=== PATIENT | male | born 1995 | race Two or more races ===

== ENCOUNTER 2024-08-14 14:04 | Inpatient (IN) | payer MEDICAID, SELFPAY ==
[2024-08-14 14:04] VITALS: BMI 37.3
[2024-08-14 14:54] VITALS: BP 141/85; PULSE 104; RESP 18; TEMP 37.4; O2SAT 97
--- NOTE | 2024-08-14 15:04 | XR_ITS ---
Examination: CT abdomen with intravenous contrast CT pelvis with intravenous contrast 2-D coronal reconstructions 2-D sagittal reconstructions Date and time of exam:August 06, 2024 1632 hrs. Comparison June 21, 2008 Indications: Right lower abdominal pain with right groin pain and edema today. CTDI: vol (mGy) 13.6 DLP: (mGycm) 907 Technique: Multiple axial sections of the abdomen and pelvis have been obtained. 64 slice high-resolution scanner used. 3 mm axial sections have been obtained, post intravenous injection 60 cc Isovue-370 2-D sagittal, coronal reconstructions obtained. Low dose protocols were performed. One or more of the following dose reduction techniques were used; automated exposure control, adjustment of the mA and/or KV according to patient size, use of iterative reconstruction technique. Findings: Liver mildly irregular contour no focal liver lesions Hepatomegaly 19 cm, splenomegaly 14 cm Contracted gallbladder No pancreatic or adrenal mass Bilateral renal cysts, no renal or ureteral calculi, no hydronephrosis Normal appendix No diverticulitis Normal seminal vesicles No prostatomegaly Focal infectious process in the anterior right groin, axial image 268 with central 32 x 21 mm abscess with reactive enlarged right common femoral lymph node 3 cm This infectious process appears to extend to the upper margin of the scrotum on axial image 320 The osseous structures are intact Impression: Suspect primary hepatocellular disease Hepatosplenomegaly Focal infectious process in the right groin with central 32 x 21 mm abscess with reactive enlarged right common femoral lymph nodes There is infectious process extends to the upper margin of the right scrotum, consider testicular sonography follow-up
--- NOTE | 2024-08-14 15:04 | PD.EDRME ---
Rapid Medical Screening Exam RME Arrival date/time: 08/14/24 14:04 28-year-old male presents emergency department complaining of right groin swelling and pain has been ongoing for several days. Chief Complaint: Urogenital-Male Time Seen by Provider: 08/14/24 15:01 Vital signs: Vital Signs Temperature 99.4 F 08/14/24 14:54 Pulse Rate 104 H 08/14/24 14:54 Respiratory Rate 18 08/14/24 14:54 Blood Pressure 141/85 H 08/14/24 14:54 Pulse Oximetry (%) 97 08/14/24 14:54 Oxygen Delivery Method Room Air 08/14/24 14:54 Vital signs reviewed by provider: Yes
[2024-08-14 15:27] LABS: Collection Type, Urine Clean Catch; RBC,Urine 0 /hpf (0-3)
[2024-08-14 15:36] LABS: Basophils % (Auto) 0 % (0-2.5); Eosinophils # (Auto) 0.1 Thou/mm3 (0.0-0.5); Eosinophils % (Auto) 1 % (0-10); Hematocrit 41.4 % (41.0-53.0); Hemoglobin 14.1 g/dL (13.5-16.0); Immature Granulocytes % (Auto) 0 % (0-0); Immature Granulocytes Auto 0.05 Thou/mm3 (0.00-0.00); Lymphocytes # (Auto) 2.5 Thou/mm3 (1.0-4.8); Lymphocytes % (Auto) 16 % (10-50); Mean Corpuscular HGB Conc 34.1 g/dl (31.0-37.0); Mean Corpuscular Hemoglobin 29.1 pg (25.0-35.0); Mean Corpuscular Volume 86 fL (80-100); Monocytes # (Auto) 0.9 Thou/mm3 (0.0-0.8); Monocytes % (Auto) 6 % (0-12); Neutrophils # (Auto) 11.8 Thou/mm3 (1.8-7.7); Neutrophils % (Auto) 77 % (37-80); Nucleated Red Blood Cell % 0 /100 WBC (0); Platelet Count 302 Thou/mm3 (140-440); RDW Standard Deviation 36.3 fL (35.1-43.9); Red Blood Count 4.84 Miln/mm3 (4.50-5.90); White Blood Count 15.4 Thou/mm3 (3.8-10.6)
[2024-08-14] MEDS: KETOROLAC INJ 60 MG/2 ML VIAL 30 MG IM (15:39)
[2024-08-14 15:45] LABS: Bacteria,Urine 2+; Bilirubin,Urine Negative (Negative); Blood,Urine Negative (Negative); Budding Yeast,Urine Present; Color,Urine Lt-Yellow (Lt Yel-Yel); Glucose, Urine 4+ (Negative); Hyphae Yeast Present; Ketones,Urine Negative (Negative); Leukocyte Esterase,Urine Positive (Negative); Nitrite,Urine Negative (Negative); PH,Urine 6.5 (5.0-7.0); Protein,Urine 1+ (Neg - Trace); Specific Gravity,Urine 1.037 (1.001-1.035); Squamous Epithelial Cell,Urine 1 /hpf (0-5); WBC,Urine 25 /hpf (0-5)
[2024-08-14 15:46] LABS: Culture Indicated,Urine Yes
[2024-08-14 15:47] LABS: Clarity,Urine Hazy (Clear/Hazy)
[2024-08-14 15:59] LABS: Alanine Aminotransferase 12 U/L (10-49); Albumin, Serum 4.8 gm/dL (3.5-5.0); Albumin/Globulin Ratio 1.3 (1.2-2.2); Alkaline Phosphatase 122 U/L (46-116); Anion Gap 5 (7-16); BUN/Creatinine Ratio 8 Ratio (12-20); Bilirubin,Total 0.6 mg/dL (0.3-1.2); Blood Urea Nitrogen 9 mg/dL (9-23); Calcium 9.7 mg/dL (8.3-10.6); Calcium (Corrected) 9.7 mg/dL (8.5-10.1); Carbon Dioxide 27.6 mMol/L (20.0-31.0); Chloride 96 mMol/L (98-107); Creatinine (Component) 1.1 mg/dL (0.6-1.3); Estimated Creatinine Clearance 137.6 mL/min (>60); Globulin 3.7 gm/dL (2.3-3.5); Lipase 39 U/L (12-53); Osmolality,Calculated 275 (275-295); Potassium 3.8 mMol/L (3.4-5.1); Sodium 129 mMol/L (136-145); Total Protein 8.5 gm/dL (5.7-8.2); eGFR > 60 See Note
[2024-08-14 16:02] LABS: Glucose 421 mg/dL (74-106)
[2024-08-14 16:03] LABS: Aspartate Amino Transferase < 8 U/L (0-34)
[2024-08-14 16:59] LABS: Lactate (Lactic Acid) 1.4 mMol/L (0.4-2.0)
[2024-08-14 17:26] LABS: Procalcitonin 0.19 ng/ml (0.0-0.49)
[2024-08-14 18:33] VITALS: BP 126/75; PULSE 81; RESP 15; TEMP 37.1; O2SAT 97
--- NOTE | 2024-08-14 18:59 | EDNOTE_ITS ---
ED Male Genitalurinary RME/HPI General Chief complaint: Urogenital-Male Stated complaint: RIGHT GROIN PAIN x 2 DAYS Time Seen by Provider: 08/14/24 15:01 Arrival date/time: 08/14/24 14:04 RME / HPI RME / HPI Narrative: 08/14/24 14:04 28-year-old male presents emergency department complaining of right groin swelling and pain has been ongoing for several days. ----- Dr. Andersen?s Main ED Evaluation: 28yo male with pmhx DMII presents to the ED for a chief complaint of right groin pain x 2 days. Patient states he noticed a firm area and pain to his right groin area 2 days ago, reporting it grew yesterday. Patient states the pain has persisted, so he came in for evaluation. He denies any fever, chills or any other associated symptoms. No known allergies. Related Data Previous Rx's ?Medication ?Instructions ?Recorded ibuprofen 800 mg tablet 800 mg PO TID PRN pain #30 tabs 01/06/23 Allergies Allergy/AdvReac Type Severity Reaction Status Date / Time No Known Allergies Allergy Verified 08/14/24 14:06 Review of Systems Review of Systems Systems Reviewed: All systems reviewed, normal except as documented Narrative Review of Systems: Gen: No fever, no chills, no weight loss EYES: No discharge, no visual changes, no pain HEENT: No ear pain, no congestion, no sore throat PULM: No shortness of breath, no cough, no congestion CV: No chest pain, no dyspnea on exertion, no palpitations GI: No nausea, no vomiting, no diarrhea, + pain, no constipation : No frequency, no urgency, no dysuria Musc/skel: No joint pain, no back pain Skin: No rash. Warm and dry. Psyc: No hallucinations, no depression Heme/Lymph: No easy bleeding or bruising tendencies Neuro: No weakness, no headache Past Medical History Past Medical History CARDIAC: Negative Cardiac Disorders or Congestive Heart Failure RESPIRATORY: Negative Chronic Obstructive Pulmonary Disease (COPD) or Asthma GENITOURINARY: Negative Renal Disease ENDOCRINE: Positive Diabetes Mellitus Type 2; Negative Diabetes Mellitus Type 1 HEMATOLOGIC: Negative Sickle Cell Disease Family History FAMILY HISTORY: Positive Family Endocrine Disorders; Negative Family Cardiac Disorders Surgical History SURGICAL: Positive Thyroidectomy (PARTIAL) and Knee Sx (L KNEE SRX, AND THYROID SRX) Social History SMOKING STATUS: Never smoker SUBSTANCE USE: does not use ED Exam Narrative Physical exam: GENERAL APPEARANCE: alert and oriented x 4, well-developed, well-nourished, no acute distress VITALS: All vitals were reviewed and the pulse ox is 97% on room air, which is normal according to my interpretation. HEENT: Normocephalic, atraumatic; pupils equal, round, reactive to light; EOMI; mucous membranes pink, moist; oropharynx clear NECK: Supple LUNGS: CTABL; no wheezes, no rales, no rhonchi HEART: Regular rate, regular rhythm; normal S1, S2; no murmurs ABDOMEN: non distended; normal BS; 7x7 cm hard, tender mass at the right inguinal area with overlying swelling and erythema, hot to touch, no scrotal or perineal involvement; no guarding, no rebound; no organomegaly, no hernia; BACK: no CVA tenderness EXTREMITIES: atraumatic; no edema NEUROLOGIC: awake; alert and oriented x4; cranial nerves II-XII grossly intact; no focal sensory or motor deficits PSYCHIATRIC: appropriate mood and affect SKIN: warm, dry, normal color; no rashes Course Course Course Narrative: 1945: Sepsis alert initiated. Orders made at this time are congruent with ED Adult Sepsis Order List. Re-evaluation is to be completed. 2112: NS IVF infused. 2142: Sepsis reassessment performed consisting of lab review, vitals, physical exam including auscultation of heart, lungs, and visual evaluation of capillary refills, mucosal membranes and extremities. Quality Measures Possible source: skin/soft tissue Blood cultures ordered: yes Antibiotic ordered: Yes Pertinent labs: 08/14/24 16:52 Lactic Acid 1.4 mMol/L (0.4-2.0) Procalcitonin 0.19 ng/ml (0.0-0.49) sepsis Orders Category Date Time Status CT Screening NOW Care 08/14/24 15:04 Active Bunch Maker STAT Care 08/14/24 19:42 Active Continuous Pulse Oximetry STAT Care 08/14/24 19:42 Completed EKG (ED ONLY) *Do not use* NOW Care 08/14/24 19:42 Completed In and Out Catheter X1PRN Care 08/14/24 19:42 Completed NPO STAT Care 08/14/24 19:42 Active Strict Intake and Output Routine Care 08/14/24 19:[address] abdomen pelvis w con Stat Exams 08/14/24 15:04 Completed EKG (ED Only) Stat Exams 08/14/24 19:42 Draft XR chest 1V portable Stat Exams 08/14/24 19:45 Completed B-Type Natriuretic Peptide Stat Lab 08/14/24 19:42 Ordered Blood Culture (Lab) Stat Lab 08/14/24 16:54 Received CBC Stat Lab 08/14/24 15:20 Completed CMP [Comprehensive Metabolic Panel] Stat Lab 08/14/24 15:20 Completed Ketone [Beta Hydroxybutyrate] Stat Lab 08/14/24 20:38 Completed LDH (Lactate Dehydrogenase) Stat Lab 08/14/24 20:38 Completed Lactic Acid [Lactate (Lactic Acid)] Stat Lab 08/14/24 16:52 Completed Lipase Stat Lab 08/14/24 15:20 Completed Magnesium Stat Lab 08/14/24 20:38 Completed Partial Thromboplastin Time Stat Lab 08/14/24 15:20 Received Phosphorous Stat Lab 08/14/24 20:38 Completed Procalcitonin Stat Lab 08/14/24 16:52 Completed Prothrombin Time with INR Stat Lab 08/14/24 15:20 Received Troponin I Stat Lab 08/14/24 20:38 Completed Urinalysis, C/S if Indicated Stat Lab 08/14/24 15:11 Completed Urine Culture Stat Lab 08/14/24 15:11 Received VBG [Venous Blood Gas] Stat Lab 08/14/24 20:38 Completed Ketorolac Inj [Toradol Inj] Med 08/14/24 15:04 Discontinued 30 mg IM X1 ONE Piper/Tazo 3.375 gm [Zosyn] Med 08/14/24 19:42 Discontinued 3.375 gm in 50 ml IV X1 Sodium Chloride 0.9% 1000 ml [Ns] 1,000 ml Med 08/14/24 19:47 Discontinued IV 999 mls/hr Vancomycin Inj 1,000 mg Med 08/14/24 19:47 Discontinued Sodium Chloride 0.9% 250 ml [Ns] 250 ml IV X1 Vital Signs Vital signs: Vital Signs Temperature 99.4 F 08/14/24 14:54 Pulse Rate 104 H 08/14/24 14:54 Respiratory Rate 18 08/14/24 14:54 Blood Pressure 141/85 H 08/14/24 14:54 Pulse Oximetry (%) 97 08/14/24 14:54 Oxygen Delivery Method Room Air 08/14/24 14:54 Urogenital - Male MDM Narrative MDM Narrative:: Scribe Attestation: 08/14/24 - Abbie Gibson am scribing for and in the presence of Dr. Andersen. Patient data External records reviewed:: [facility] previous records (Per chart review, patient has no relevant previous ED visits.) Clinical information provided by:: patient Social determinants that could affect healthcare access:: none Patient has the following chronic illnesses:: DM How is presenting disease/condition affected by chronic disease/condition?: exacerbated by Evaluation data The following diagnostics were reviewed and interpreted by me:: lab results and radiology exam(s) Lab and/or radiology exams considered but not ordered:: none Interpretation Summary: WBC count is elevated at 15.4, Sodium is low at 129, Glucose is elevated at 421, Lactic Acid is normal, Procalcitonin is normal, Lipase is normal, UA is positive for a UTI, according to my interpretation. EKG done at 2000, NSR, rate of 75, normal axis, no ectopy, no acute ischemia, according to my interpretation. ---- [facility] Report Signed Patient: CYNDEE MORALES. Record#: [id number] Birthdate: 1995 Age/Sex: 28 / M Location: [facility] Attending Dr: Ordering Physician: Glenda HOLLINGSWORTH)Kee Date of Service: 08/14/24 Procedure(s): CT abdomen pelvis w con Accession Number(s): [id number] cc: Fabiano Barajas MD; John Ramirez MD; Glenda HOLLINGSWORTH)Kee~ Examination: CT abdomen with intravenous contrast CT pelvis with intravenous contrast 2-D coronal reconstructions 2-D sagittal reconstructions Date and time of exam:August 06, 2024 1632 hrs. Comparison June 21, 2008 Indications: Right lower abdominal pain with right groin pain and edema today. CTDI: vol (mGy) 13.6 DLP: (mGycm) 907 Technique: Multiple axial sections of the abdomen and pelvis have been obtained. 64 slice high-resolution scanner used. 3 mm axial sections have been obtained, post intravenous injection 60 cc Isovue-370 2-D sagittal, coronal reconstructions obtained. Low dose protocols were performed. One or more of the following dose reduction techniques were used; automated exposure control, adjustment of the mA and/or KV according to patient size, use of iterative reconstruction technique. Findings: Liver mildly irregular contour no focal liver lesions Hepatomegaly 19 cm, splenomegaly 14 cm Contracted gallbladder No pancreatic or adrenal mass Bilateral renal cysts, no renal or ureteral calculi, no hydronephrosis Normal appendix No diverticulitis Normal seminal vesicles No prostatomegaly Focal infectious process in the anterior right groin, axial image 268 with central 32 x 21 mm abscess with reactive enlarged right common femoral lymph node 3 cm This infectious process appears to extend to the upper margin of the scrotum on axial image 320 The osseous structures are intact Impression: Suspect primary hepatocellular disease Hepatosplenomegaly Focal infectious process in the right groin with central 32 x 21 mm abscess with reactive enlarged right common femoral lymph nodes There is infectious process extends to the upper margin of the right scrotum, consider testicular sonography follow-up Dictated By: John Ramirez MD Signed By: <Electronically signed by John Ramirez MD in [place]> 08/14/24 1727 Medications / Prescriptions Medications or Prescriptions considered but not ordered:: none Medication administrations:: Medication Administration History Discontinued Medications Piperacillin/Tazobactam/Dextrose (Zosyn) 3.375 gm in 50 mls @ 100 mls/hr IV X1 ONE Stop: 08/14/24 20:11 Last Infusion: 08/14/24 20:49 Dose: Infused Documented By: Admin: 08/14/24 19:59 Dose: 100 mls/hr Documented By: SHARAD Sodium Chloride (Ns) 1,000 mls @ 999 mls/hr IV .Q1H1M ONE Stop: 08/14/24 20:47 Last Infusion: 08/14/24 21:13 Dose: Infused Documented By: Admin: 08/14/24 20:01 Dose: 999 mls/hr Documented By: SHARAD Vancomycin HCl 1,000 mg/ (Sodium Chloride) 250 mls @ 150 mls/hr IV X1 ONE Stop: 08/14/24 21:26 Last Admin: 08/14/24 20:45 Dose: 150 mls/hr Documented By: SHARAD Ketorolac Tromethamine (Ketorolac Inj 60 Mg/2 Ml Vial) 30 mg IM X1 ONE Stop: 08/14/24 15:05 Last Admin: 08/14/24 15:39 Dose: 30 mg Documented By: MINERVA see above Consultations Consultation(s) initiated? (list below): Yes Consultation #1 (Physician, Specialty, Details): Discussed case with [Dr. Gibbs] from [general surgery] regarding [consultation]. Discussed patients ED course, exam findings, labs, and radiology results. States he does not need to be consulted at this time due to the abscess being small, but states to have the admitting team call him if the abscess gets larger. Time: 21:16 Consultation #2 (Physician, Specialty, Details): Discussed case with [Dr. Kitchen] from Hospitalist service regarding admission. Discussed patients ED course, exam findings, labs, and radiology results. The Hospitalist [agrees] to accept the patient for admission. Time: 21:38 Diagnosis Urogenital Male Differential Diagnosis: other (cellulitis, abscess, hernia) Most likely diagnosis given after review of the tests above:: see below Admission Indicated Admission indicated?: indicated Admission Request Was there a request for admission?: Yes Admission Attestation Admission request attestation: Discussed case with [] from Hospitalist service regarding admission. Discussed patients ED course, exam findings, labs, and radiology results. The Hospitalist [agrees,declines] to accept the patient for admission. Disposition Plan Disposition Plan: Admit Critical Care Time Critical Care Time Critical Care Time: Yes Total Critical Care Time (min.): 40 Attestation: The high probability of sudden, clinically significant deterioration in the patient?s condition required the highest level of my preparedness to intervene urgently. The services I provided to this patient were to treat and/or prevent clinically significant deterioration. Services included the following: chart data review, reviewing nursing notes and/or old charts, documentation time, field service consultant collaboration regarding findings and treatment options, medication orders and management, direct patient care, vital sign assessments and ordering, interpreting and reviewing diagnostic studies and lab tests. Aggregate critical care time includes only time during which I was engaged in w ork directly related to the patient?s care, as described above, whether at bedside or elsewhere in the Emergency Department. It did not include time spent performing other reported procedures or the services of residents, students, nurses or physician assistants. Discharge Plan Plan Patient Disposition: Admit Acute Care w/in Hospital Prescriptions/Referrals Prescriptions/Med Rec: No Action ibuprofen 800 mg tablet 800 mg PO TID PRN (Reason: pain) Qty: 30 0RF Referrals: Fabiano Barajas MD [Primary Care Provider] - In 1 week Problem List Clinical Impression: Sepsis, Cellulitis Patient/Caregiver Discharge Instructions Print Language: Andorran Stand Alone Forms: Kandi Award Info., Patient Portal Info Letter
--- NOTE | 2024-08-14 19:42 | EKG_ITS ---
[facility] Test Date: 2024-08-14 Pat Name: CYNDEE MORALES Department: Room: - Gender: Male Employment Services Director: : 1995 Requested By: Jarrell Romero Order Number: [id number] Reading MD: Jarrell Romero Measurements Intervals [place] Rate: 75 P: 40 VT: 161 QRS: 18 QRSD: 103 T: 3 QT: 377 QTc: 422 Interpretive Statements SINUS RHYTHM NONSPECIFIC T-WAVE ABNORMALITY Compared to ECG 08/15/2020 19:07:35 T-wave abnormality now present Sinus tachycardia no longer present /store/S0/[id number].pdf
--- NOTE | 2024-08-14 19:45 | XR_ITS ---
Examination: AP chest single view Technique one AP portable upright chest single view Exam date and time: August 06, 20242004 hrs. Indications: Coughing today Findings: Normal heart size No lobar pneumonia Mild accentuation right basilar bronchovascular markings The osseous structures are intact Impression: Right basilar bronchitis pattern
[2024-08-14 19:58] VITALS: PULSE 78
[2024-08-14] MEDS: PIPER/TAZO 3.375 GM 3.375 GM/50 ML BAG IV (19:59)
[2024-08-14] MEDS: SODIUM CHLORIDE 0.9% 1000 ML 1,000 ML 999 ML IV (20:01)
[2024-08-14 20:02] VITALS: BP 117/70; PULSE 76; RESP 16; TEMP 36.8; O2SAT 98
[2024-08-14] MEDS: Vancomycin Inj 1,000 MG in SODIUM CHLORIDE 0.9% 250 ML 250 ML 150 MG IV (20:45)
[2024-08-14 20:50] LABS: Base Excess, Venous 2 (-3-3); O2 Saturation, Venous 66 % (96-97); PCO2, Venous 50 mmHg (36-56); PO2, Venous 35 mmHg (15-58); pH, Venous 7.37 (7.33-7.66)
[2024-08-14 20:54] LABS: Beta Hydroxybutyrate 0.2 mmol/L (<0.6)
[2024-08-14 21:22] LABS: Phosphorous 3.6 mg/dL (2.4-5.1); Troponin I < 0.020 ng/mL (0.0-0.045)
[2024-08-14 22:00] LABS: LDH (Lactate Dehydrogenase) 135 U/L (120-246)
[2024-08-14 22:28] LABS: INR 1.1 (0.9-1.3); Partial Thromboplastin Time 29.9 Seconds (22.0-36.0); Prothrombin Time 11.7 Seconds (9.0-12.2)
[2024-08-14 22:31] LABS: B-Type Natriuretic Peptide < 20 pg/mL (0-100)
--- NOTE | 2024-08-14 22:55 | PD.RESHP ---
Documentation for date of: 08/14/24 [facility] History of Present Illness Chief complaint: Right groin abscess History of present illness: Mr. Sam is a 28-year-old male with past medical history of diabetes mellitus who presented to [facility] on 08/14 with a chief complaint of right groin abscess. Patient reported that he noticed the abscess about 2 days ago, reports tenderness on palpation, denies any pain, fever and chills. Patient does report history of multiple abscesses in the past, reported he had a abscess in the genital area about 3 to 4 months ago which popped by itself. Patient admits to being noncompliant with his diabetes medications, reports taking only oral medications to manage diabetes, follows up with [facility] outpatient. Otherwise patient has no other complaints, denies any chest pain headache and shortness of breath. ED Course: ED Vitals: On presentation in ED BP 141/85, P104, RR 18, temp 99.4, O2 sat 97 on room air ED Labs: ED labs significant for WBC 15.4, neutrophils 11.8, sodium 129, chloride 96, glucose 421, alk phos 122, total protein 8.5, globulin 3.7 urinalysis shows specific gravity 1.037, protein 1+, glucose 4+, leukocyte esterase positive, WBC 25, bacteria 2+, yeast present. ED Imaging:CT abdomen pelvis in ED significant for Suspect primary hepatocellular disease, Hepatosplenomegaly, Focal infectious process in the right groin with central 32 x 21 mm abscess with reactive enlarged right common femoral lymph nodes. There is infectious process extends to the upper margin of the right scrotum, consider testicular sonography follow-up. Chest x-ray shows Right basilar bronchitis pattern. EKG shows sinus rhythm, QTc 422. ED Treatment:Patient was given Toradol x 1, Zosyn, vancomycin, 1 L NS bolus in ED. General surgery was consulted in ED recommended to monitor abscess size, no surgical intervention needed for now. Patient admitted for SIRS positive, suspicion of sepsis secondary to right groin abscess Review of Systems Review of Systems Narrative Review of Systems: ROS: -CONSTITUTIONAL: Denies weight loss, fever and chills. -HEENT: Denies changes in vision and hearing. -RESPIRATORY: Denies SOB and cough. -CV: Denies palpitations and Chest Pain. -GI: Denies abdominal pain, nausea, vomiting,constipation and diarrhea. Positive for right groin pain. -: Denies dysuria and urinary frequency. -MSK: Denies myalgia and joint pain. -SKIN: Denies rash and pruritus. -NEUROLOGICAL: Denies headache and syncope. -PSYCHIATRIC: Denies recent changes in mood. Denies anxiety and depression. 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 Exam Vital Signs Temp Pulse Resp BP Pulse Ox O2 Del Method 98.3 F 76 16 117/70 98 Room Air 08/14/24 20:02 08/14/24 20:02 08/14/24 20:02 08/14/24 20:02 08/14/24 20:02 08/14/24 20:02 Narrative Exam Physical Exam General: Awake and in no acute distress. Conversational and non-toxic appearing. HEENT: Normocephalic, atraumatic, mucous membranes moist. Heart: Regular rate and rhythm, no murmurs. Lungs: Clear to auscultation with no wheezing or crackles. Abdomen: Soft, nondistended, nontender, positive bowel sounds. ?No guarding or rebound tenderness. Neurologic: Alert and oriented x3, no gross neurological deficit, and patient able to move all 4 extremities. Extremities: No edema. Skin: Positive for right groin swelling, tender on palpation. White colored discharge noted around urethral meatus. Results: Labs 08/14/24 15:20 08/14/24 15:20 Labs: Short CBC 08/14/24 Range/Units 15:20 WBC 15.4 H (3.8-10.6) Thou/mm3 Hgb 14.1 (13.5-16.0) g/dL Hct 41.4 (41.0-53.0) % Plt Count 302 (140-440) Thou/mm3 BMP 08/14/24 15:20 Sodium 129 L Potassium 3.8 Chloride 96 L Carbon Dioxide 27.6 BUN 9 Creatinine 1.1 Glucose 421 H* Calcium 9.7 Cardiac Enzymes 08/14/24 Range/Units 20:38 Troponin I < 0.020 (0.0-0.045) ng/mL Liver Function 08/14/24 Range/Units 15:20 Total Bilirubin 0.6 (0.3-1.2) mg/dL AST < 8 (0-34) U/L ALT 12 (10-49) U/L Alkaline Phosphatase 122 H (46-116) U/L Albumin 4.8 (3.5-5.0) gm/dL Urine 08/14/24 Range/Units 15:11 Urine Color Lt-Yellow (Lt Yel-Yel) Urine Clarity Hazy (Clear/Hazy) Urine pH 6.5 (5.0-7.0) Ur Specific [place] 1.037 H (1.001-1.035) Urine Protein 1+ A (Neg - Trace) Urine Glucose (UA) 4+ A (Negative) ABG Interpretation ABG results: 08/14/24 20:38 VBG pH 7.37 VBG pCO2 50 VBG pO2 35 VBG Base Excess 2 Quality Measures Quality Measures sepsis Current suspected stage: ruled out Possible source: skin/soft tissue Blood cultures ordered: yes Antibiotic ordered: Yes Medications Home Medications and Allergies Allergies Allergy/AdvReac Type Severity Reaction Status Date / Time No Known Allergies Allergy Verified 08/14/24 14:06 Visit Medications Acetaminophen (Acetaminophen 325 Mg Tablet) 650 mg PO Q6H PRN PRN Reason: Pain (1-3) and Fever >100.3 Stop: 09/13/24 22:19 Hydrocodone Bitart/Acetaminophen (Hydrocodone/Apap 10/325 Tab) 1 tab PO Q4H PRN PRN Reason: PAIN SCALE 4-10(Mod-Sev Stop: 08/19/24 22:19 Dextrose (Dextrose 50%-Water Inj 50 Ml Syringe) 25 ml IV Q15MIN PRN PRN Reason: BG 50-70 responsive npo pt Stop: 09/13/24 22:24 Dextrose (Dextrose 50%-Water Inj 50 Ml Syringe) 50 ml IV Q15MIN PRN PRN Reason: BG <50 OR BG <70 & pt unresponsive Stop: 09/13/24 22:24 Glucagon (Glucagon Inj 1 Mg Vial) 1 mg IM Q15MIN PRN PRN Reason: BG <70, and no IV access Heparin Sodium (Porcine) (Heparin Sod Inj 5000 Unit/Ml Vial) 5,000 unit SC Q12H JOSEPHINE Stop: 08/28/24 22:29 Cefepime HCl 2 gm/ Sodium (Chloride) 50 mls @ 100 mls/hr IV Q12HR JOSEPHINE Stop: 08/21/24 22:37 Cefepime HCl 2 gm/ Sodium (Chloride) 50 mls @ 100 mls/hr IV X1 ONE Stop: 08/15/24 02:29 Insulin Glargine (Insulin Glargine (Lantus) 5 Unit/0.05 Ml (Per 5 Units)) 15 unit SC HS [facility] Stop: 09/14/24 20:59 Insulin Human Lispro (Insulin Lispro (Admelog) 1 Unit/0.01 Ml Unit) 0 unit SC ACHS [facility]; Protocol Stop: 09/14/24 07:29 Ondansetron HCl (Ondansetron Inj 2 Mg/Ml Inj 2 Ml) 4 mg IV Q6H PRN; Protocol PRN Reason: NAUSEA OR VOMITING Stop: 09/13/24 22:19 Pharmacy Consult (Vancomycin Pharmacy To Dose 1 Each Each) 1 each IV QDAY [facility] Stop: 09/14/24 08:59 Sennosides (Senna Tablet) 1 tab PO QDAY PRN; Protocol PRN Reason: constipation Stop: 09/13/24 22:19 Discontinued Medications Piperacillin/Tazobactam/Dextrose (Zosyn) 3.375 gm in 50 mls @ 100 mls/hr IV X1 ONE Stop: 08/14/24 20:11 Last Infusion: 08/14/24 20:49 Dose: Infused Sodium Chloride (Ns) 1,000 mls @ 999 mls/hr IV .Q1H1M ONE Stop: 08/14/24 20:47 Last Infusion: 08/14/24 21:13 Dose: Infused Vancomycin HCl 1,000 mg/ (Sodium Chloride) 250 mls @ 150 mls/hr IV X1 ONE Stop: 08/14/24 21:26 Last Infusion: 08/14/24 22:34 Dose: Infused Insulin Glargine (Insulin Glargine (Lantus) 5 Unit/0.05 Ml (Per 5 Units)) 15 unit SC X1 ONE Stop: 08/14/24 22:40 Ketorolac Tromethamine (Ketorolac Inj 60 Mg/2 Ml Vial) 30 mg IM X1 ONE Stop: 08/14/24 15:05 Last Admin: 08/14/24 15:39 Dose: 30 mg Assessment & Plan Plan Summary: Mr. Sam is a 28-year-old male with past medical history of diabetes mellitus who presented to [facility] on 08/14 with a chief complaint of right groin abscess. Patient admitted for SIRS positive, suspicion of sepsis secondary to right groin abscess # Right groin abscess and cellulitis # SIRS 2/4 positive, suspicion of sepsis # Fungal balanitis # Leukocytosis On presentation pulse 104, WBC count 15.4. Patient met SIRS criteria 2/4, RR 18, temp 99.4 Noticed the abscess about 2 days ago, reports tenderness on palpation, denies any pain, fever and chills. Noncompliant with diabetes medication, has multiple abscess in the past. CT abdomen pelvis in ED significant for Suspect primary hepatocellular disease, Hepatosplenomegaly, Focal infectious process in the right groin with central 32 x 21 mm abscess with reactive enlarged right common femoral lymph nodes. There is infectious process extends to the upper margin of the right scrotum, consider testicular sonography follow-up. Was given Toradol x 1, Zosyn, vancomycin, 1 L NS bolus in ED. General surgery was consulted in ED recommended to monitor abscess size, no surgical intervention needed for now. Plan: -Started on cefepime and vancomycin (08/15- -Acetaminophen/[place] as needed for pain -Follow blood culture -Follow urine culture -Consider general surgery consult -Topical clotrimazole twice daily # Type 2 diabetes mellitus Patient reports taking oral medication to manage diabetes, admits to noncompliance, poor follow-up outpatient with PCP. Plan: -Started on Lantus 15 units at bedtime -Sliding scale insulin -Follow hemoglobin A1c in a.m. -Hypoglycemia protocol in place DVT prophylaxis: Heparin GI prophylaxis: Not indicated Diet: Carb consistent Lines: Peripheral IV Code status: Full code Case discussed with Attending Dr. Haines. Eleazar Carroll PGY1 Attending Provider Attestation/Addendum 28-year-old male patient was seen in room 355. The patient presented with right groin pain and swelling. CT scan showed possible focal abscess. General surgery evaluation was requested. IV antibiotic started. Patient has been diagnosed with diabetes mellitus but he is not taking any medications. Blood glucose is over 400 he will need diabetes education.
[2024-08-14] MEDS: INSULIN GLARGINE (Lantus) 5 UNIT/0.05 ML (PER 5 UNITS) 15 UNIT SC (23:15)
[2024-08-14] MEDS: HEPARIN SOD INJ 5000 UNIT/ML VIAL SC (23:15)
[2024-08-15] VITALS (8 sets, daily range): BP systolic 115–146; BP diastolic 72–93; PULSE 74–95; RESP 18–99; TEMP 36.2–37; O2SAT 95–98; BMI 36.2
[2024-08-15] MEDS: INSULIN LISPRO (AdmeLOG) 1 UNIT/0.01 ML UNIT 16 UNIT SC (00:53)
[2024-08-15] MEDS: CEFEPIME INJ 2 GM in SODIUM CHLORIDE 0.9% (P) 50 ML IV ×3 (01:51→20:53)
[2024-08-15 05:54] LABS: Basophils # (Auto) 0.1 Thou/mm3 (0.0-0.2); Basophils % (Auto) 0 % (0-2.5); Eosinophils # (Auto) 0.1 Thou/mm3 (0.0-0.5); Eosinophils % (Auto) 1 % (0-10); Hematocrit 36.4 % (41.0-53.0); Hemoglobin 12.4 g/dL (13.5-16.0); Immature Granulocytes % (Auto) 0 % (0-0); Immature Granulocytes Auto 0.05 Thou/mm3 (0.00-0.00); Lymphocytes # (Auto) 2.1 Thou/mm3 (1.0-4.8); Lymphocytes % (Auto) 15 % (10-50); Mean Corpuscular HGB Conc 34.1 g/dl (31.0-37.0); Mean Corpuscular Hemoglobin 29.2 pg (25.0-35.0); Mean Corpuscular Volume 86 fL (80-100); Monocytes % (Auto) 7 % (0-12); Neutrophils # (Auto) 11.3 Thou/mm3 (1.8-7.7); Neutrophils % (Auto) 77 % (37-80); Nucleated Red Blood Cell % 0 /100 WBC (0); Platelet Count 265 Thou/mm3 (140-440); RDW Standard Deviation 36.7 fL (35.1-43.9); Red Blood Count 4.25 Miln/mm3 (4.50-5.90); White Blood Count 14.6 Thou/mm3 (3.8-10.6)
[2024-08-15 06:28] LABS: Alanine Aminotransferase 14 U/L (10-49); Albumin, Serum 4.2 gm/dL (3.5-5.0); Albumin/Globulin Ratio 1.3 (1.2-2.2); Alkaline Phosphatase 98 U/L (46-116); Anion Gap 10 (7-16); Aspartate Amino Transferase < 10 U/L (0-34); BUN/Creatinine Ratio 12 Ratio (12-20); Bilirubin,Total 0.5 mg/dL (0.3-1.2); Blood Urea Nitrogen 12 mg/dL (9-23); Calcium 9.2 mg/dL (8.3-10.6); Calcium (Corrected) 9.2 mg/dL (8.5-10.1); Carbon Dioxide 25.1 mMol/L (20.0-31.0); Cardiac Risk Estimate 3.7 RATIO (4.0-6.7); Chloride 100 mMol/L (98-107); Cholesterol 126 mg/dL (132-200); Estimated Creatinine Clearance 149.1 mL/min (>60); Globulin 3.3 gm/dL (2.3-3.5); Glucose 256 mg/dL (74-106); HDL Cholesterol 34 mg/dL (40-60); LDL Cholesterol,Calculated 72 mg/dL (0-130); Osmolality,Calculated 278 (275-295); Phosphorous 2.4 mg/dL (2.4-5.1); Potassium 3.4 mMol/L (3.4-5.1); Sodium 135 mMol/L (136-145); Thyroid Stimulating Hormone 1.97 uIU/mL (0.55-4.78); Total Protein 7.5 gm/dL (5.7-8.2); Triglycerides 98 mg/dL (30-150); eGFR > 60 See Note
[2024-08-15 06:32] LABS: Glucose Estimated Average 278 mg/dL (80-131); Hemoglobin A1C 11.3 % Hgb (4.8-6.0)
[2024-08-15] MEDS: VANCOMYCIN/NS 1 GM IVPB 200 ML IV ×3 (08:18→22:58)
[2024-08-15] MEDS: INSULIN LISPRO (AdmeLOG) 1 UNIT/0.01 ML UNIT SC ×4 (08:19→20:52)
--- NOTE | 2024-08-15 10:15 | XR_ITS ---
Examination: Testicular sonography complete Technique: High resolution grayscale sonographic images testes with color flow analysis Doppler spectral analysis assessment arterial inflow venous outflow Exam date and time: August 15, 2024 1102 hours Indications: Groin abscess with testicular pain this week Findings: Right testis 4.3 x 1.9 x 2.7 cm Epididymis 11 mm Arterial flow testicle. No testicular mass Left testis 4.0 x 1.8 x 2.7 cm Epididymis 11 mm Arterial flow testicle No testicular mass Impression: No testicular torsion or testicular mass Arterial flow to both testes increased consider bilateral orchitis
[2024-08-15] MEDS: ACETAMINOPHEN 325 MG TABLET 650 MG PO (10:37)
[2024-08-15] MEDS: HEPARIN SOD INJ 5000 UNIT/ML VIAL SC ×2 (10:39→22:58)
--- NOTE | 2024-08-15 10:54 | PC.NURSE ---
called pharmacy for lotrimin cream
--- NOTE | 2024-08-15 11:42 | PD.RESPRO ---
Documentation for date of: 08/15/24 Subjective Subjective Interval history: No acute overnight events. Right groin pain control. Denies fever, chills, headaches, chest pain, sob, cough, GI or urinary symptoms. Exam Vital Signs Temp Pulse Resp BP Pulse Ox O2 Del Method 97.2 F 90 18 115/73 96 Room Air 08/15/24 07:30 08/15/24 11:21 08/15/24 11:21 08/15/24 07:30 08/15/24 07:30 08/15/24 07:30 Narrative Exam GENERAL: Normal appearing adult male, NAD HEENT: NCAT.?YASMINE. Oral mucosa is moist. Patent Nares NECK: Supple, nontender, no thyromegaly, no meningismus, no JVD, no step offs CARDIOVASCULAR: RRR, no m/g/r LUNGS: CTAB, no w/r/r. Symmetrical chest rise. No intercostal subcostal retraction. ABDOMEN: Soft, flat, nontender. No guarding/rebound tenderness/masses. +BS EXTREMITIES: Nontender.? No edema/cyanosis.?Moves all 4 extremities well, with full ROM and good CSM. SKIN: Large right groin swelling with tenderness to palpation. No signs of active discharge or bleed. MSK: No lumbar or midline, no CVA, no paraspinal muscle spasm or tenderness. NEURO: No focal neurologic deficits. PSYCHIATRIC: Normal mood and affect, cooperative, no SI or HI or hallucinations. Objective Labs 08/15/24 04:25 08/15/24 04:25 Labs: Laboratory Results - last 24 hr 08/14/24 08/14/24 08/14/24 15:11 15:20 16:52 WBC 15.4 H RBC 4.84 Hgb 14.1 Hct 41.4 MCV 86 MCH 29.1 MCHC 34.1 RDW Std Deviation 36.3 Plt Count 302 Neut % (Auto) 77 Lymph % (Auto) 16 [place] % (Auto) 6 Eos % (Auto) 1 Baso % (Auto) 0 Neut # (Auto) 11.8 H Lymph # (Auto) 2.5 [place] # (Auto) 0.9 H Eos # (Auto) 0.1 Baso # (Auto) 0.0 Immature Gran # (Auto) 0.05 H Absolute Nucleated RBC 0.00 Immature Gran % 0 Nucleated RBC % 0 PT 11.7 INR 1.1 APTT 29.9 VBG pH VBG pCO2 VBG pO2 VBG O2 Sat (Amish) VBG Base Excess Sodium 129 L Potassium 3.8 Chloride 96 L Carbon Dioxide 27.6 Anion Gap 5 L BUN 9 Creatinine 1.1 Estim Creat Clear Calc 137.6 eGFR > 60 BUN/Creatinine Ratio 8 L Glucose 421 H* Estimated Ave Glu mg/dL Hemoglobin A1c Calculated Osmolality 275 Lactic Acid 1.4 Calcium 9.7 Corrected Calcium 9.7 Phosphorus Magnesium Total Bilirubin 0.6 AST < 8 ALT 12 Alkaline Phosphatase 122 H Lactate Dehydrogenase Troponin I B-Natriuretic Peptide < 20 Total Protein 8.5 H Albumin 4.8 Globulin 3.7 H Albumin/Globulin Ratio 1.3 Triglycerides Cholesterol LDL Cholesterol, Calc HDL Cholesterol Cholesterol/HDL Ratio Lipase 39 Beta-Hydroxybutyrate/Acetoacetate Procalcitonin 0.19 TSH Ur Collection Type Clean Catch Urine Color Lt-Yellow Urine Clarity Hazy Urine pH 6.5 Ur Specific [place] 1.037 H Urine Protein 1+ A Urine Glucose (UA) 4+ A Urine Ketones Negative Urine Blood Negative Urine Nitrite Negative Urine Bilirubin Negative Urine Urobilinogen (Auto) 4.0 Ur Leukocyte Esterase Positive Urine RBC 0 Urine WBC 25 H Ur Squamous Epith Cells 1 Urine Bacteria 2+ A Ur Yeast w Hyphae Present A Urine Yeast (Budding) Present A Ur Culture Indicated? Yes 08/14/24 08/15/24 20:38 04:25 WBC 14.6 H RBC 4.25 L Hgb 12.4 L Hct 36.4 L MCV 86 MCH 29.2 MCHC 34.1 RDW Std Deviation 36.7 Plt Count 265 D Neut % (Auto) 77 Lymph % (Auto) 15 [place] % (Auto) 7 Eos % (Auto) 1 Baso % (Auto) 0 Neut # (Auto) 11.3 H Lymph # (Auto) 2.1 [place] # (Auto) 1.0 H Eos # (Auto) 0.1 Baso # (Auto) 0.1 Immature Gran # (Auto) 0.05 H Absolute Nucleated RBC 0.00 Immature Gran % 0 Nucleated RBC % 0 PT INR APTT VBG pH 7.37 VBG pCO2 50 VBG pO2 35 VBG O2 Sat ([place]ish) 66 L VBG Base Excess 2 Sodium 135 L Potassium 3.4 Chloride 100 Carbon Dioxide 25.1 Anion Gap 10 BUN 12 Creatinine 1.0 Estim Creat Clear Calc 149.1 eGFR > 60 BUN/Creatinine Ratio [address]ucose [address] Glu mg/dL 278 H Hemoglobin A1c 11.3 H Calculated Osmolality 278 Lactic Acid Calcium 9.2 Corrected Calcium 9.2 Phosphorus 3.6 2.4 Magnesium 2.0 2.0 Total Bilirubin 0.5 AST < 10 ALT 14 Alkaline Phosphatase 98 D Lactate Dehydrogenase 135 Troponin I < 0.020 B-Natriuretic Peptide Total Protein 7.5 Albumin 4.2 D Globulin 3.3 Albumin/Globulin Ratio 1.3 Triglycerides 98 Cholesterol 126 L LDL Cholesterol, Calc 72 HDL Cholesterol 34 L Cholesterol/HDL Ratio 3.7 L Lipase Beta-Hydroxybutyrate/Acetoacetate 0.2 Procalcitonin TSH 1.97 Ur Collection Type Urine Color Urine Clarity Urine pH Ur Specific [place] Urine Protein Urine Glucose (UA) Urine Ketones Urine Blood Urine Nitrite Urine Bilirubin Urine Urobilinogen (Auto) Ur Leukocyte Esterase Urine RBC Urine WBC Ur Squamous Epith Cells Urine Bacteria Ur Yeast w Hyphae Urine Yeast (Budding) Ur Culture Indicated? ABG Interpretation ABG results: 08/14/24 20:38 VBG pH 7.37 VBG pCO2 50 VBG pO2 35 VBG Base Excess 2 Quality Measures Quality Measures sepsis Current suspected stage: ruled out Possible source: skin/soft tissue Blood cultures ordered: yes Antibiotic ordered: Yes Assessment & Plan Assessment Current Active Medications: Generic Name Dose Route Start Last Admin Trade Name Freq PRN Reason Stop Dose Admin Acetaminophen 650 mg 08/14/24 22:20 Acetaminophen 325 Mg Tablet PO 09/13/24 22:19 Q6H PRN Pain (1-3) and Fever >100.3 Hydrocodone Bitart/Acetaminophen 1 tab 08/14/24 22:20 Hydrocodone/Apap 10/325 Tab PO 08/19/24 22:19 Q4H PRN PAIN SCALE 4-10(Mod-Sev Clotrimazole 0 gm 08/15/24 09:00 Clotrimazole Cr 1% 30 Gm Tube TOP 09/14/24 08:59 BID JOSEPHINE Dextrose 25 ml 08/14/24 22:25 Dextrose 50%-Water Inj 50 Ml Syringe IV 09/13/24 22:24 Q15MIN PRN BG 50-70 responsive npo pt Dextrose 50 ml 08/14/24 22:25 Dextrose 50%-Water Inj 50 Ml Syringe IV 09/13/24 22:24 Q15MIN PRN BG <50 OR BG <70 & pt unresponsive Glucagon 1 mg 08/14/24 22:25 Glucagon Inj 1 Mg Vial IM Q15MIN PRN BG <70, and no IV access Heparin Sodium (Porcine) 5,000 unit 08/14/24 22:30 08/15/24 10:39 Heparin Sod Inj 5000 Unit/Ml Vial SC 08/28/24 22:29 5,000 unit Q12H JOSEPHINE Administration Cefepime HCl 2 gm/ Sodium 50 mls @ 100 mls/hr 08/15/24 09:00 08/15/24 10:35 Chloride IV 08/22/24 08:59 100 mls/hr Q12HR JOSEPHINE Administration Vancomycin/Sodium Chloride 200 mls @ 120 mls/hr 08/15/24 07:15 08/15/24 08:18 Vancomycin/Ns 1 Gm Ivpb IV 08/22/24 07:14 120 mls/hr Q8HR JOSEPHINE Administration Protocol Insulin Glargine 15 unit 08/15/24 21:00 Insulin Glargine (Lantus) 5 Unit/0.05 Ml (Per 5 Units) SC 09/14/24 20:59 HS JOSEPHINE Insulin Human Lispro 0 unit 08/15/24 07:30 08/15/24 08:19 Insulin Lispro (Admelog) 1 Unit/0.01 Ml Unit SC 09/14/24 07:29 4 unit ACHS JOSEPHINE Administration Protocol Ondansetron HCl 4 mg 08/14/24 22:20 Ondansetron Inj 2 Mg/Ml Inj 2 Ml IV 09/13/24 22:19 Q6H PRN NAUSEA OR VOMITING Protocol Pharmacy Consult 1 each 08/15/24 09:00 Vancomycin Pharmacy To Dose 1 Each Each IV 09/14/24 08:59 QDAY PRN PROTOCOL Sennosides 1 tab 08/14/24 22:20 Senna Tablet PO 09/13/24 22:19 QDAY PRN constipation Protocol Plan In summary: 28-year-old male with PMH of NIDDM, admitted for sepsis 2/2 right groin abscess. No surgical interventions at this time per general surgery. Continued on ANTIBIOTICS. Overall improving. Sepsis (resolved) 2/2 Right groin abscess and cellulitis Fungal balanitis Presented with tachycardia, leukocytosis, with suspected source of right groin abscess which has been ongoing for 2 days prior to admission. CT showed 32 x 21 right groin abscess with reactive common femoral lymph node, and infectious process extending to upper margin of right scrotum. General surgery recommended observation for now. ? Continue CEFEPIME (08/15 to [present]) ? Continue VANCOMYCIN (08/15 to [present]) ? Topical CLOTRIMAZOLE BID ? Pain control ? Wound care ? Pending blood culture ? Pending scrotal ultrasound T2DM, poorly controlled Previously prescribed oral antiglycemic agents, noncompliant 2/2 diarrhea and abdominal discomfort caused by meds. A1c 11.3 this visit. GLUCOSE currently 256 ? Continue glargine 15 units daily ? Continue INSULIN sliding scale ? Accu-Cheks ? Recommended follow-up with PCP for glycemic control Health maintenance Diet: CHO consistent GI prophylaxis: Not indicated DVT prophylaxis: HEPARIN Antibiotics: CEFEPIME, VANCOMYCIN CODE STATUS: Full code Disposition: Pending abscess improvement Patient case was discussed with attending, Dr. Azael Trejo DO and senior resident Dr. Post. Minesh Dunbar DO PGYI Attending Provider Attestation/Addendum I have discussed and was present for the essential components of the history, physical examination, diagnosis, and treatment plan with the resident. I agree with the patient's care as documented by the resident and amended herein by me. Sreekanth Trejo DO. Patient seen and evaluated this AM. Vital signs stable, patient afebrile overnight, WBC 14 today, A1c 11, UA positive however patient asymptomatic for any urinary tract infection. Scrotal ultrasound today demonstrates an increased blood flow to the testes possibly suggesting orchitis. Surgery consulted on admission, no surgical intervention at this time. Will continue cefepime and vancomycin, follow-up with cultures, continue clotrimazole for possible fungal balanitis and adjust diabetic medications for optimal blood glucose control. Although this document has been carefully reviewed, there may still be some phonetic and other typographical errors. These errors are purely grammatical due to imperfections in the software program and should not be construed in any way to compromise the substance of the patient's medical care during this visit.
[2024-08-15] MEDS: CLOTRIMAZOLE CR 1% 30 GM TUBE TOP ×2 (14:23→20:51)
--- NOTE | 2024-08-15 14:41 | PC.SS ---
Tomi Sam is 28 year old male admitted to [facility] for right groin abscess. SS conducted bedside contact with the patient to complete initial assessment and to discuss discharge planning. SW used all precautionary measures to complete initial. Role and reason for the contact was explained to Rea. Pt is alert and oriented times 4. Patient confirmed demographic information and lives with mother. Patient identifies Lilian Sam, mother, as his surrogate decision maker. Pt states prior to hospitalization he is able to complete all ADL?s independently does not need DME nor O2. Pt confirmed no history of mental health or substance abuse. Pts PCP is Fabiano Barajas. Pt has not seen doctor for quite some time. Pt confirmed he is not consistent with diabetes medication. Pharmacy of choice is [facility]. Pt works for [employer] but is on work comp leave due to knee awaiting surgery. Discharge options discussed and the pt will go home. Advance life directive discussed pt was not receptive and knows to reach out to PCP for paperwork. Family will provide transportation upon DC. No further intervention required at this time, social director would be available to address any further concerns. DC Plan: Home Contact: mother Hughes, Address: Confirmed on face sheet PCP: Fabiano Barajas
[2024-08-15] MEDS: INSULIN GLARGINE (Lantus) 5 UNIT/0.05 ML (PER 5 UNITS) 15 UNIT SC (20:51)
--- NOTE | 2024-08-15 22:23 | PC.NURSE ---
Vancomycin trough still pending.
[2024-08-16] VITALS (7 sets, daily range): BP systolic 107–121; BP diastolic 65–73; PULSE 77–103; RESP 16–96; TEMP 36.6–37.4; O2SAT 93–97; BMI 36.1
[2024-08-16] MEDS: VANCOMYCIN/NS 1 GM IVPB 200 ML IV (05:36)
[2024-08-16 06:13] LABS: Basophils # (Auto) 0.1 Thou/mm3 (0.0-0.2); Basophils % (Auto) 0 % (0-2.5); Eosinophils # (Auto) 0.2 Thou/mm3 (0.0-0.5); Eosinophils % (Auto) 1 % (0-10); Hematocrit 36.7 % (41.0-53.0); Hemoglobin 12.4 g/dL (13.5-16.0); Immature Granulocytes % (Auto) 1 % (0-0); Immature Granulocytes Auto 0.09 Thou/mm3 (0.00-0.00); Lymphocytes # (Auto) 2.7 Thou/mm3 (1.0-4.8); Lymphocytes % (Auto) 19 % (10-50); Mean Corpuscular HGB Conc 33.8 g/dl (31.0-37.0); Mean Corpuscular Hemoglobin 29.7 pg (25.0-35.0); Mean Corpuscular Volume 88 fL (80-100); Monocytes # (Auto) 0.8 Thou/mm3 (0.0-0.8); Monocytes % (Auto) 6 % (0-12); Neutrophils # (Auto) 10.4 Thou/mm3 (1.8-7.7); Neutrophils % (Auto) 73 % (37-80); Nucleated Red Blood Cell % 0 /100 WBC (0); Platelet Count 283 Thou/mm3 (140-440); RDW Standard Deviation 37.4 fL (35.1-43.9); Red Blood Count 4.18 Miln/mm3 (4.50-5.90); White Blood Count 14.2 Thou/mm3 (3.8-10.6)
[2024-08-16 06:23] LABS: Alanine Aminotransferase 12 U/L (10-49); Albumin, Serum 4.2 gm/dL (3.5-5.0); Albumin/Globulin Ratio 1.3 (1.2-2.2); Alkaline Phosphatase 96 U/L (46-116); Anion Gap 10 (7-16); Aspartate Amino Transferase < 10 U/L (0-34); BUN/Creatinine Ratio 11 Ratio (12-20); Bilirubin,Total 0.5 mg/dL (0.3-1.2); Blood Urea Nitrogen 10 mg/dL (9-23); Calcium 9.9 mg/dL (8.3-10.6); Calcium (Corrected) 9.9 mg/dL (8.5-10.1); Carbon Dioxide 27.5 mMol/L (20.0-31.0); Chloride 101 mMol/L (98-107); Creatinine (Component) 0.9 mg/dL (0.6-1.3); Estimated Creatinine Clearance 165.7 mL/min (>60); Globulin 3.3 gm/dL (2.3-3.5); Glucose 177 mg/dL (74-106); Osmolality,Calculated 278 (275-295); Potassium 3.4 mMol/L (3.4-5.1); Sodium 138 mMol/L (136-145); Total Protein 7.5 gm/dL (5.7-8.2); eGFR > 60 See Note
[2024-08-16] MEDS: INSULIN LISPRO (AdmeLOG) 1 UNIT/0.01 ML UNIT SC ×2 (08:06→11:30)
[2024-08-16] MEDS: CEFEPIME INJ 2 GM in SODIUM CHLORIDE 0.9% (P) 50 ML IV (08:06)
[2024-08-16] MEDS: CLOTRIMAZOLE CR 1% 30 GM TUBE TOP (08:07)
[2024-08-16] MEDS: metroNIDAZOLE 250 MG TABLET 500 MG PO (11:17)
[2024-08-16] MEDS: HEPARIN SOD INJ 5000 UNIT/ML VIAL SC (11:17)
--- NOTE | 2024-08-16 11:53 | ESDS_ITS ---
Planned Discharge Date 08/16/24 DS: Providers Provider Date of admission: 08/14/24 22:19 Primary care physician: Fabiano Barajas MD Admitting Provider: Roberto Haines MD Attending Provider on Admission: Roberto Haines MD Consults: 08/14/24 22:26 Referral Registered Dietitian Routine Comment: 08/15/24 04:44 Referral Registered Dietitian Routine Comment: Attending Provider on DC: Dr. Azael Trejo DO Discharging Provider: Dr. Azael Trejo DO DS: Diagnosis Problem List Completed Was Problem List Reviewed/Reconciled?: Yes Hospital Course Hospital Course Hospital course: This is a 28-year-old male with PMHx of diabetes, poorly controlled with an A1c of 11.5 who presented with sepsis in setting of right groin abscess and balanitis. CT showed infectious process extending to the upper margin of the right scrotum as well as focal right groin abscess measuring 32 x 21 mm and reactive, enlarged right common femoral lymph nodes. General surgery recommended ANTIBIOTICS treatment, no surgical intervention. Patient continued on IV ANTIBIOTICS and he responded well with improved abscess size. Patient started on INSULIN regimen given his uncontrolled diabetes. He was also followed up by nutrition for diabetes management. Patient will continue on home ANTIBIOTICS as prescribed. He will follow-up with PCP in regards to abscess and glycemic control. PATIENT INSTRUCTIONS: Follow-up with PCP within 1 week of discharge, discussed glycemic control, other antiglycemic agents. Please discuss lifestyle modification with your PCP Continue taking INSULIN as prescribed below, continue using GLUCOSE monitor Return to Emergency Room if symptoms persist, worsen, or new symptoms develop. Continue taking ANTIBIOTICS as described below: ? OMEPRAZOLE topical cream twice daily ? METRONIDAZOLE 500 mg every 8 hours ? CIPROFLOXACIN 500 mg twice daily ? DOXYCYCLINE 100 mg twice daily ? INSULIN GLARGINE 15 units daily at night DISCONTINUE taking the following medications: ? IBUPROFEN 800 mg ? JANUMET 50 mg ADMISSION DIAGNOSES: Sepsis (resolved) 2/2 Right groin abscess and cellulitis Fungal balanitis T2DM, poorly controlled Patient case was discussed with attending, Dr. Azael Trejo DO and senior residents Dr. Post and Dr. Bhaagt. Minesh Dunbar DO PGYI Time Spent with Patient Time attestation: Total time spent providing and/or coordinating discharge services: Greater than 35 minutes. Exam Vital Signs Temp Pulse Resp BP Pulse Ox O2 Del Method 99.3 F 77 16 112/66 94 L Room Air 08/16/24 08:00 08/16/24 08:00 08/16/24 08:00 08/16/24 08:00 08/16/24 08:00 08/16/24 08:00 Discharge Plan Plan Patient Disposition: HOME (Self Care) Patient condition on transfer: Stable Prescriptions/Referrals Prescriptions/Med Rec: New clotrimazole [Antifungal (clotrimazole)] 1 % Cream 1 applic top BID 7 Days Qty: 30 0RF metronidazole 500 mg tablet 500 mg PO Q8H 3 Days Qty: 9 0RF ciprofloxacin HCl [Cipro] 500 mg tablet 500 mg PO Q12H 3 Days Qty: 6 0RF (DME) FreeStyle Ever 3 Sensor Device See Rx Instructions .Route Qty: 2 0RF Rx Instructions: As directed to monitor blood glucose insulin glargine [Lantus Solostar U-100 Insulin] 100 unit/mL (3 mL) insulin pen 15 unit subcut HS 30 Days Qty: 4.5 1RF (DME) pen needle, diabetic [Pen Needle] 29 gauge x 1/2 needle See Rx Instructions .Route Qty: 100 1RF Rx Instructions: As directed (DME) blood-glucose meter Kit See Rx Instructions .Route Qty: 1 0RF Rx Instructions: As directed (DME) lancets 30 gauge misc See Rx Instructions .Route Qty: 200 0RF Rx Instructions: As directed (DME) Blood Glucose Test Strip See Rx Instructions .Route Qty: 50 2RF Rx Instructions: As directed doxycycline hyclate 100 mg tablet 100 mg PO BID 3 Days Qty: 6 0RF Discontinued ibuprofen 800 mg tablet 800 mg PO TID PRN (Reason: pain) Qty: 30 0RF Janumet 50 mg PO BID Rx Instructions: Referrals: Fabiano Barajas MD [Primary Care Provider] - Patient/Caregiver Discharge Instructions Other Discharge Activity Instructions:: Follow-up with PCP within 1 week of disc harge, discussed glycemic control, other antiglycemic agents. Please discuss lifestyle modification with your PCP Continue taking INSULIN as prescribed below, continue using GLUCOSE monitor Return to Emergency Room if symptoms persist, worsen, or new symptoms develop. Continue taking ANTIBIOTICS as described below: ? OMEPRAZOLE topical cream twice daily ? METRONIDAZOLE 500 mg every 8 hours ? CIPROFLOXACIN 500 mg twice daily ? DOXYCYCLINE 100 mg twice daily ? INSULIN GLARGINE 15 units daily at night DISCONTINUE taking the following medications: ? IBUPROFEN 800 mg ? JANUMET 50 mg Education Materials: Discharge Instructions Using ... Print Language: Estonian Stand Alone Forms: [employer] Award Info., Patient Portal Info Letter Discharge Order Discharge Orders: Discharge (Routine); Ordered 08/16/24 Ordered By: Mo Post Quality Discharge Quality Measures VTE prophylaxis MD Attestestation MD Attestation I have discussed and was present for the essential components of the discharge history, physical examination, diagnosis, and discharge treatment plan with the resident. I agree with the patient's discharge care as documented by the resident and amended herein by me. Sreekanth Trejo DO. The patient understood all discharge instructions, all questions were answered satisfactorily. The patient was instructed to return to the Emergency Department is symptoms worsened or persisted. Although this document has been carefully reviewed, there may still be some phonetic and other typographical errors. These errors are purely grammatical due to imperfections in the software program and should not be construed in any way to compromise the substance of the patient's medical care during this visit.
--- NOTE | 2024-08-16 12:12 | PC.SS ---
Follow up note: Patient to d/c home today. No needs.
--- NOTE | 2024-08-16 17:00 | PC.NURSE ---
received phone call from [facility] pharmacy where pt prescriptions were sent, per pharmacist at [facility], the lancets and test strips that were prescribed cannot be charged to pt insurance due to the frequency not being listed on prescription. Attempted to notify resident MD's on duty and did not receive response. multiple attempts made to call residents.
== END 2024-08-16 16:30 | disposition home or self-care (01) | DRG 383 ==
LOC: SERX 21:54 → SERHOLD 22:47 → S3NX 08-15 00:20
PROVIDERS: Admitting Provider Internal Medicine; Emergency Provider Emergency Medicine; PCP Family Medicine; Visit Provider Internal Medicine
DX: L02.214 Cutaneous abscess of groin (principal); L03.314 Cellulitis of groin; N48.1 Balanitis; Z91.148 Patient's other noncompliance with medication regimen for other reason; E11.65 Type 2 diabetes mellitus with hyperglycemia
CPT/HCPCS: 36415; 71045; 74177; 76870; 80053; 80061; 80202; 81001; 82010; 82803; 83036; 83605; 83615; 83690; 83735; 83880; 84100; 84145; 84443; 84484; 85025; 85610; 85730; 87040; 87081; 87086; 93005; 96365; 96366; 96367; 96372; 99291; A4649; J0692; J1643; J1815; J1885; J2543; J3370; J3371; J7030; J7050; Q9967; A9270; J1644

== ENCOUNTER 2024-10-17 14:06 | Emergency (ER) | payer MEDICAID, SELFPAY ==
--- NOTE | 2024-10-17 14:50 | XR_ITS ---
Examination: Ultrasound soft tissue right lower abdomen right groin Technique: Grayscale sonographic images soft tissue right lower abdomen right groin Exam date and time: October 17, 2024 1707 hrs. Indications: Palpable lump with enlargement in the right groin beginning 3 days ago, history on CT abdomen pelvis August 06, 2024 infectious process in the right groin consistent with abscess Findings: Sonographic images demonstrate extensive edema with cystic structure indistinct margins in the right groin 3.3 x 2.6 x 3.2 cm most consistent with abscess Impression: Extensive infectious change in the right groin with abscess 3.3 x 2.6 x 3.2 cm
--- NOTE | 2024-10-17 14:52 | PD.EDRME ---
Rapid Medical Screening Exam RME Arrival date/time: 10/17/24 14:06 29 yo m present to ED for co of right groin swelling and white spot. hx of abscess groin I have greeted and performed a focused initial assessment of this patient. A comprehensive ED assessment and evaluation of the patient, analysis of all test results, and completion of the medical decision making process will be conducted by additional ED providers. Chief Complaint: Skin/Abscess/Foreign Body Time Seen by Provider: 10/17/24 14:31
[2024-10-17 14:59] VITALS: BP 127/87; PULSE 91; RESP 16; TEMP 37.2; O2SAT 99; BMI 35.2
--- NOTE | 2024-10-17 17:18 | XR_ITS ---
Examination: CT abdomen with intravenous contrast CT pelvis with intravenous contrast 2-D coronal reconstructions 2-D sagittal reconstructions Date and time of exam:October 17, 2024 1904 hrs. Indications: Lump in the right groin with swelling beginning 2 days ago, focal infectious process in the right groin with central abscess 32 x [address] abdomen pelvis August 06, 2024. CTDI: vol (mGy) 11.2 DLP: (mGycm) 815 Technique: Multiple axial sections of the abdomen and pelvis have been obtained. 64 slice high-resolution scanner used. 3 mm axial sections have been obtained, post intravenous injection 60 cc Isovue-370 2-D sagittal, coronal reconstructions obtained. Low dose protocols were performed. One or more of the following dose reduction techniques were used; automated exposure control, adjustment of the mA and/or KV according to patient size, use of iterative reconstruction technique. Findings: No focal liver or splenic lesions Contracted gallbladder No pancreatic mass No renal or adrenal calculi, no hydronephrosis Aorta normal size Normal appendix No bowel obstruction Colonic diverticulosis, no diverticulitis Urinary bladder intact Large area of increased density in the right groin at least 7 cm in dimension with marked skin thickening most consistent with cellulitis and small 8 mm area of possible central cavitation Reactive right groin lymph nodes Impression: Large area of cellulitis with small central abscess in the right groin again noted with more pronounced skin thickening on this study compared with August 06, 2024
[2024-10-17 17:57] LABS: Lactate (Lactic Acid) 1.9 mMol/L (0.4-2.0)
[2024-10-17 17:59] LABS: Basophils # (Auto) 0.1 Thou/mm3 (0.0-0.2); Basophils % (Auto) 0 % (0-2.5); Eosinophils # (Auto) 0.1 Thou/mm3 (0.0-0.5); Eosinophils % (Auto) 1 % (0-10); Hematocrit 40.5 % (41.0-53.0); Hemoglobin 13.6 g/dL (13.5-16.0); Immature Granulocytes % (Auto) 0 % (0-0); Immature Granulocytes Auto 0.04 Thou/mm3 (0.00-0.00); Lymphocytes % (Auto) 19 % (10-50); Mean Corpuscular HGB Conc 33.6 g/dl (31.0-37.0); Mean Corpuscular Hemoglobin 28.7 pg (25.0-35.0); Mean Corpuscular Volume 85 fL (80-100); Monocytes # (Auto) 0.8 Thou/mm3 (0.0-0.8); Monocytes % (Auto) 5 % (0-12); Neutrophils # (Auto) 11.6 Thou/mm3 (1.8-7.7); Neutrophils % (Auto) 75 % (37-80); Nucleated Red Blood Cell % 0 /100 WBC (0); Platelet Count 250 Thou/mm3 (140-440); Red Blood Count 4.74 Miln/mm3 (4.50-5.90); White Blood Count 15.6 Thou/mm3 (3.8-10.6)
[2024-10-17 18:15] VITALS: BP 128/79; O2SAT 99
[2024-10-17 18:28] LABS: Alanine Aminotransferase 30 U/L (10-49); Albumin, Serum 4.5 gm/dL (3.5-5.0); Albumin/Globulin Ratio 1.4 (1.2-2.2); Alkaline Phosphatase 97 U/L (46-116); Anion Gap 8 (7-16); Aspartate Amino Transferase 16 U/L (0-34); BUN/Creatinine Ratio 10 Ratio (12-20); Bilirubin,Total 0.4 mg/dL (0.3-1.2); Blood Urea Nitrogen 9 mg/dL (9-23); Calcium 9.4 mg/dL (8.3-10.6); Calcium (Corrected) 9.4 mg/dL (8.5-10.1); Carbon Dioxide 26.6 mMol/L (20.0-31.0); Chloride 102 mMol/L (98-107); Creatinine (Component) 0.9 mg/dL (0.6-1.3); Globulin 3.3 gm/dL (2.3-3.5); Glucose 221 mg/dL (74-106); Osmolality,Calculated 279 (275-295); Potassium 3.9 mMol/L (3.4-5.1); Procalcitonin 0.05 ng/ml (0.0-0.49); Sodium 137 mMol/L (136-145); Total Protein 7.8 gm/dL (5.7-8.2); eGFR > 60 See Note
--- NOTE | 2024-10-17 18:35 | PC.NURSE ---
PT STATES HE HAS AN ABSCESS TO HIS GROIN THAT HE HAS HAD BEFORE. AROUND JULY HE CAME IN FOR ONE IN THE SAME SPOT, HE WAS ADMITTED GAVE ABX, IT WENT DOWN BUT DID NOT COMPLETELY DISSAPEAR, A SMALL NON-PAINFUL BUMP REMAINED, NOW IT HAS GROWN AGAIN CAUSING DISCOMFORT.
[2024-10-17 18:42] VITALS: BP 128/79; PULSE 90; RESP 18; TEMP 36.7; O2SAT 100
[2024-10-17 19:12] VITALS: O2SAT 86
--- NOTE | 2024-10-17 19:13 | PD.EDSKIN ---
ED Skin Abcess FB-RME/HPI General Chief complaint: Skin/Abscess/Foreign Body Stated complaint: ABSCESS TO R LOWER QUADRANT Time Seen by Provider: 10/17/24 14:31 Arrival date/time: 10/17/24 14:06 RME / HPI RME / HPI narrative: 10/17/24 14:06 29 yo m present to ED for co of right groin swelling and white spot. hx of abscess groin I have greeted and performed a focused initial assessment of this patient. A comprehensive ED assessment and evaluation of the patient, analysis of all test results, and completion of the medical decision making process will be conducted by additional ED providers. --------- Dr. Andersen?s Main ED Evaluation: 29-year-old male diabetic who presents to the emergency department complaining of an area to the right groin of swelling, pain, redness and some white spots on the skin overlying. Patient was admitted in July for subcutaneous abscess in that area and uncontrolled diabetes. He had IV antibiotics while in the hospital and was evaluated by the surgeon but did not have a procedure. The IV antibiotics greatly improved the patient's infection and in time he was deemed safe for discharge with p.o. antibiotics. He says that the whole area healed up fine. He says over the last 2 days its become symptomatic again with similar symptoms. No fevers, shakes, chills, sweats. No chest pain or dyspnea. Patient has had no lightheadedness Related Data Previous Rx's ?Medication ?Instructions ?Recorded Lantus Solostar U-100 Insulin 100 15 unit (0.15 mL) subcut HS 30 08/16/24 unit/mL (3 mL) subcutaneous pen days #4.5 mL (insulin glargine) blood sugar diagnostic (Blood #50 ea 08/16/24 Glucose Test strips) blood-glucose meter #1 ea 08/16/24 blood-glucose sensor (FreeStyle #2 ea 08/16/24 Ever 3 Sensor device) lancets 30 gauge #200 ea 08/16/24 pen needle, diabetic 29 gauge x #100 ea 08/16/24 1/2 (Pen Needle) doxycycline monohydrate 100 mg 100 mg PO BID Cellulitis 10 days 10/17/24 capsule #20 caps ibuprofen 600 mg tablet 600 mg PO Q6H PRN fever or pain 5 10/17/24 days #20 tabs Allergies Allergy/AdvReac Type Severity Reaction Status Date / Time No Known Allergies Allergy Verified 10/17/24 14:09 Review of Systems Review of Systems Systems Reviewed: All systems reviewed, normal except as documented Past Medical History Past Medical History CARDIAC: Negative Cardiac Disorders or Congestive Heart Failure RESPIRATORY: Negative Chronic Obstructive Pulmonary Disease (COPD) or Asthma GENITOURINARY: Negative Renal Disease ENDOCRINE: Positive Diabetes Mellitus Type 2 (TRULICITY); Negative Diabetes Mellitus Type 1 HEMATOLOGIC: Negative Sickle Cell Disease Family History FAMILY HISTORY: Negative Family Cardiac Disorders Surgical History SURGICAL: Positive Thyroidectomy Social History SMOKING STATUS: Never smoker SUBSTANCE USE: does not use ED Exam Narrative Physical exam: GENERAL APPEARANCE: alert and oriented x 4, well-developed, well-nourished, no acute distress VITALS: All vitals were reviewed and the pulse ox is % on room air, which is normal according to my interpretation. HEENT: Normocephalic, atraumatic; pupils equal, round, reactive to light; EOMI; mucous membranes pink, moist; oropharynx clear NECK: Supple LUNGS: CTABL; no wheezes, no rales, no rhonchi HEART: Regular rate, regular rhythm; normal S1, S2; no murmurs ABDOMEN: non distended; normal BS; soft, no tenderness, no guarding, no rebound; no masses, no organomegaly, no hernia BACK: no CVA tenderness : Crocheter Hand present. Patient has an area to the right of the mons venous which is about 5 cm x 3 cm of swelling, tenderness, is mildly hot to touch. This is the same area where he had his abscess during the previous admission. EXTREMITIES: atraumatic; no edema NEUROLOGIC: awake; alert and oriented x4; cranial nerves II-XII grossly intact; no focal sensory or motor deficits PSYCHIATRIC: appropriate mood and affect SKIN: warm, dry, normal color; no rashes Course Quality Measures none Orders Category Date Time Status CT Screening NOW Care 10/17/24 17:19 Completed IV [Insert IV] STAT Care 10/17/24 17:[address] abdomen pelvis w con Stat Exams 10/17/24 17:18 Completed US soft tissue lower back abd Stat Exams 10/17/24 14:50 Completed Blood Culture (Lab) Stat Lab 10/17/24 17:38 Received CBC Stat Lab 10/17/24 17:35 Completed CMP [Comprehensive Metabolic Panel] Stat Lab 10/17/24 17:35 Completed Lactic Acid [Lactate (Lactic Acid)] Stat Lab 10/17/24 17:35 Completed Procalcitonin Stat Lab 10/17/24 17:35 Completed Doxycycline [Vibramycin] Med 10/17/24 20:56 Discontinued 100 mg PO X1 ONE Vital Signs Vital signs: Vital Signs Temperature 99.0 F 10/17/24 14:59 Pulse Rate 91 10/17/24 14:59 Respiratory Rate 16 10/17/24 14:59 Blood Pressure 127/87 H 10/17/24 14:59 Pulse Oximetry (%) 99 10/17/24 14:59 Oxygen Delivery Method Room Air 10/17/24 14:59 Skin / Abscess / Foreign Body MDM Narrative MDM Narrative:: 20:26- Patient CT shows cellulitis with a tiny central abscess. I do not think that it is worthwhile opening this in order to get that tiny amount of purulent fluid out. Will discharge with doxycycline x 10 days, very strict instructions to use hot compresses to the area multiple times a day, instructions to keep good control of his blood sugar and to take his blood sugars twice per day which the patient has not been doing. Also very strict return instructions and the patient has voiced understanding and agreement. Patient data External records reviewed:: [facility] previous records (Per chart review, patient was admitted here on 08/14/24 for cellulitis.) Clinical information provided by:: patient Social determinants that could affect healthcare access:: none Patient has the following chronic illnesses:: DM How is presenting disease/condition affected by chronic disease/condition?: exacerbated by Evaluation data The following diagnostics were reviewed and interpreted by me:: lab results and radiology exam(s) Lab and/or radiology exams considered but not ordered:: none Interpretation Summary: WBC count is elevated at 15.6, Glucose is 221, Lactic Acid is normal, Procalcitonin is normal, according to my interpretation. ------- [facility] Report Signed Patient: CYNDEE [facility]OR[facility]ES [facility]. Record#: [id number] Birthdate: 1995 Age/Sex: 29 / M Location: [facility] Attending Dr: Ordering Physician: Alfonzo Thomas PA-C Date of Service: 10/17/24 Procedure(s): US soft tissue lower back abd Accession Number(s): [id number] cc: Fabiano Barajas MD; John Ramirez MD; Alfonzo Thomas PA-C~ Examination: Ultrasound soft tissue right lower abdomen right groin Technique: Grayscale sonographic images soft tissue right lower abdomen right groin Exam date and time: October 17, 2024 1707 hrs. Indications: Palpable lump with enlargement in the right groin beginning 3 days ago, history on CT abdomen pelvis August 06, 2024 infectious process in the right groin consistent with abscess Findings: Sonographic images demonstrate extensive edema with cystic structure indistinct margins in the right groin 3.3 x 2.6 x 3.2 cm most consistent with abscess Impression: Extensive infectious change in the right groin with abscess 3.3 x 2.6 x 3.2 cm Dictated By: John Ramirez MD Signed By: <Electronically signed by John Ramirez MD in [place]> 10/17/24 1733 [facility] Report Signed Patient: CYNDEE MORALES. Record#: [id number] Birthdate: 1995 Age/Sex: 29 / M Location: [facility] Attending Dr: Ordering Physician: Alfonzo Thomas PA-C Date of Service: 10/17/24 Procedure(s): CT abdomen pelvis w con Accession Number(s): [id number] cc: Fabiano Barajas MD; John Ramirez MD; Alfonzo Thomas PA-C~ Examination: CT abdomen with intravenous contrast CT pelvis with intravenous contrast 2-D coronal reconstructions 2-D sagittal reconstructions Date and time of exam:October 17, 2024 1904 hrs. Indications: Lump in the right groin with swelling beginning 2 days ago, focal infectious process in the right groin with central abscess 32 x [address] abdomen pelvis August 06, 2024. CTDI: vol (mGy) 11.2 DLP: (mGycm) 815 Technique: Multiple axial sections of the abdomen and pelvis have been obtained. 64 slice high-resolution scanner used. 3 mm axial sections have been obtained, post intravenous injection 60 cc Isovue-370 2-D sagittal, coronal reconstructions obtained. Low dose protocols were performed. One or more of the following dose reduction techniques were used; automated exposure control, adjustment of the mA and/or KV according to patient size, use of iterative reconstruction technique. Findings: No focal liver or splenic lesions Contracted gallbladder No pancreatic mass No renal or adrenal calculi, no hydronephrosis Aorta normal size Normal appendix No bowel obstruction Colonic diverticulosis, no diverticulitis Urinary bladder intact Large area of increased density in the right groin at least 7 cm in dimension with marked skin thickening most consistent with cellulitis and small 8 mm area of possible central cavitation Reactive right groin lymph nodes Impression: Large area of cellulitis with small central abscess in the right groin again noted with more pronounced skin thickening on this study compared with August 06, 2024 Dictated By: John Ramirez MD Signed By: <Electronically signed by John Ramirez MD in [place]> 10/17/24 1931 Medications / Prescriptions Medications or Prescriptions considered but not ordered:: none Medication administrations:: Medication Administration History Discontinued Medications Doxycycline Hyclate (Doxycycline 100 Mg Tablet) 100 mg PO X1 ONE Stop: 10/17/24 20:57 Last Admin: 10/17/24 21:01 Dose: 100 mg Documented By: EF see above Consultations Consultation(s) initiated? (list below): No Diagnosis Skin/Abscess Differential Diagnosis: cellulitis and other (abscess, hernia) Most likely diagnosis given after review of the tests above:: cellulitis Admission Indicated Admission indicated?: not indicated Admission Request Was there a request for admission?: No Disposition Plan Disposition Plan: Discharge Discharge Attestation Discharge Attestation: The patient and all family members were given an opportunity to ask questions and understood the discharge instructions. Discharge instructions specifically effects, indications for sooner follow up or return to the emergency department, and the expected course of current diagnosis. Patient condition: Stable Discharge Plan Plan Patient Disposition: HOME (Self Care) Disposition Comment: Stable for discharge Patient condition on transfer: Stable Prescriptions/Referrals Prescriptions/Med Rec: New doxycycline monohydrate 100 mg capsule 100 mg PO BID 10 Days Qty: 20 0RF ibuprofen 600 mg tablet 600 mg PO Q6H PRN (Reason: fever or pain) 5 Days Qty: 20 0RF No Action (DME) [place] 3 Sensor Device See Rx Instructions .Route Qty: 2 0RF Rx Instructions: As directed to monitor blood glucose insulin glargine [Lantus Solostar U-100 Insulin] 100 unit/mL (3 mL) insulin pen 15 unit subcut HS 30 Days Qty: 4.5 1RF (DME) pen needle, diabetic [Pen Needle] 29 gauge x 1/2 needle See Rx Instructions .Route Qty: 100 1RF Rx Instructions: As directed (DME) blood-glucose meter Kit See Rx Instructions .Route Qty: 1 0RF Rx Instructions: As directed (DME) lancets 30 gauge misc See Rx Instructions .Route Qty: 200 0RF Rx Instructions: As directed (DME) Blood Glucose Test Strip See Rx Instructions .Route Qty: 50 2RF Rx Instructions: As directed Referrals: Fabiano Barajas MD [Primary Care Provider] - In 1 week Problem List Clinical Impression: Cellulitis Patient/Caregiver Discharge Instructions Discharge Activity: activity as tolerated Education Materials: Discharge Instructions for Cellulitis, ED Cellulitis Additional Instructions: You have an area of infection called cellulitis. There is not much of a abscess there. So working to try treating this at home with antibiotic pills rather than admitting you to the hospital. But this is only get a work if you do certain things there. One of them is picking tech your antibiotics in the morning at your pharmacy and take them twice per day until they are completely gone. You cannot skip doses. The other thing is using hot compresses. This is a hot washcloth under the hot water and put it on top of the area until the washcloth is room temperature. Do this several times a day and if it were me I would be doing it 10 times a day. The point of this is were drawing more blood to the area. Your blood has your arm and that fight infection and it is also going to have antibiotics and it out too. It is very important that if this keeps worsening or if you are feeling like you are getting sicker in any way that you return to the ER right away and we will help you. Otherwise you should follow-up with your primary care doctor within the next several days. Print Language: Sudanese Stand Alone Forms: [employer] Award Info., Patient Portal Info Letter
[2024-10-17 19:30] VITALS: BP 104/82; PULSE 87; RESP 18; O2SAT 100
--- NOTE | 2024-10-17 19:56 | PC.LAC ---
Pt resting quietly . denies pain at this time unless area is touched
[2024-10-17] MEDS: DOXYCYCLINE 100 MG TABLET PO (21:01)
[2024-10-17 21:05] VITALS: BP 127/84; PULSE 96; RESP 16; TEMP 36.7; O2SAT 98
== END 2024-10-17 21:12 | disposition home or self-care (01) ==
PROVIDERS: Physician Assistant; Emergency Provider Emergency Medicine; PCP Family Medicine
DX: L03.314 Cellulitis of groin (principal); E11.9 Type 2 diabetes mellitus without complications
CPT/HCPCS: 36415; 74177; 76705; 80053; 83605; 84145; 85025; 87040; 87077; 87186; 99285; A4649; Q9967; A9270

== ENCOUNTER 2025-03-14 04:00 | Emergency (ER) | payer MEDICAID, SELFPAY ==
[2025-03-14 04:05] VITALS: BP 125/73; PULSE 135; RESP 19; TEMP 38; O2SAT 96; BMI 39.3
[2025-03-14 04:28] LABS: Strep A Rapid Negative (Negative)
--- NOTE | 2025-03-14 05:56 | PD.EDADULT ---
ED General RME/HPI General Chief complaint: Dental/Oral/Throat Stated complaint: SORE THROAT Time Seen by Provider: 03/14/25 05:08 Arrival date/time: 03/14/25 04:00 RME / HPI RME / HPI narrative: 29-year-old male with a past medical history of diabetes, presents to the ED with a complaint of right-sided sore throat, painful swallowing, fever, cough with yellow sputum since Friday. Sore throat has become progressively worse. He denies any runny nose, nasal congestion, sinus pressure or postnasal drip, ear pain, vomiting, diarrhea, or abdominal pain. Related Data Previous Rx's ?Medication ?Instructions ?Recorded Lantus Solostar U-100 Insulin 100 15 unit (0.15 mL) subcut HS 30 08/16/24 unit/mL (3 mL) subcutaneous pen days #4.5 mL (insulin glargine) blood sugar diagnostic (Blood #50 ea 08/16/24 Glucose Test strips) blood-glucose meter #1 ea 08/16/24 blood-glucose sensor (FreeStyle #2 ea 08/16/24 Ever 3 Sensor device) lancets 30 gauge #200 ea 08/16/24 pen needle, diabetic 29 gauge x #100 ea 08/16/24 1/2 (Pen Needle) amoxicillin 875 mg-potassium 1 tab PO BID #20 tabs 03/14/25 clavulanate 125 mg tablet Allergies Allergy/AdvReac Type Severity Reaction Status Date / Time No Known Allergies Allergy Verified 03/14/25 04:01 Review of Systems Review of Systems Systems Reviewed: All systems reviewed, normal except as documented Past Medical History Past Medical History CARDIAC: Negative Cardiac Disorders or Congestive Heart Failure RESPIRATORY: Negative Chronic Obstructive Pulmonary Disease (COPD) or Asthma GENITOURINARY: Negative Renal Disease ENDOCRINE: Positive Diabetes Mellitus Type 2 (TRULICITY); Negative Diabetes Mellitus Type 1 HEMATOLOGIC: Negative Sickle Cell Disease Family History FAMILY HISTORY: Negative Family Cardiac Disorders Surgical History SURGICAL: Positive Thyroidectomy Social History SMOKING STATUS: Never smoker SUBSTANCE USE: does not use ED Exam Narrative Physical exam: A&O, febrile and non-toxic appearing 29-year-old male, no acute distress. TMs are without erythema, nares are pale and boggy, no maxillary or frontal sinus tenderness, pharynx is with erythema and exudate, no peritonsillar cellulitis noted. Lungs are clear, tachycardia, regular rhythm,, Abdomen is soft, nontender, and non-distended. Moves all extremities well. Course Course Course Narrative: COVID and influenza swabs are negative. Rapid strep is also negative. Patient was given Tylenol 1000 mg p.o. as well as his first dose of Augmentin. Quality Measures none Orders Category Date Time Status Bedside COVID-19 Antigen Test NOW Care 03/14/25 04:03 Active Bedside Influenza A&B Antigen Test NOW Care 03/14/25 04:03 Completed Strep A Rapid Stat Lab 03/14/25 04:10 Completed Vital Signs Vital signs: Vital Signs Temperature 100.4 F 03/14/25 04:05 Pulse Rate 135 H 03/14/25 04:05 Respiratory Rate 19 03/14/25 04:05 Blood Pressure 125/73 03/14/25 04:05 Pulse Oximetry (%) 96 03/14/25 04:05 Discharge Plan Plan Patient Disposition: HOME (Self Care) Discharge Disposition comment: Stable Prescriptions/Referrals Prescriptions/Med Rec: New amoxicillin-pot clavulanate 875-125 mg tablet 1 tab PO BID Qty: 20 0RF No Action (DME) FreeStyle Ever 3 Sensor Device See Rx Instructions .Route Qty: 2 0RF Rx Instructions: As directed to monitor blood glucose insulin glargine [Lantus Solostar U-100 Insulin] 100 unit/mL (3 mL) insulin pen 15 unit subcut HS 30 Days Qty: 4.5 1RF (DME) pen needle, diabetic [Pen Needle] 29 gauge x 1/2 needle See Rx Instructions .Route Qty: 100 1RF Rx Instructions: As directed (DME) blood-glucose meter Kit See Rx Instructions .Route Qty: 1 0RF Rx Instructions: As directed (DME) lancets 30 gauge misc See Rx Instructions .Route Qty: 200 0RF Rx Instructions: As directed (DME) Blood Glucose Test Strip See Rx Instructions .Route Qty: 50 2RF Rx Instructions: As directed Referrals: No Primary/Family,Physician [Referring Provider] - In 1 week Problem List Clinical Impression: Exudative tonsillitis Patient/Caregiver Discharge Instructions Education Materials: Tonsillitis in Adults Additional Instructions: Take the antibiotics as prescribed and complete the course even though you may be feeling better. Follow-up with your primary care physician in 24 to 48 hours. Return to the ED for any new or worsening symptoms. Print Language: Martiniquais Stand Alone Forms: Patient Portal Info Letter HOSSEIN/RICARDO Supervising Physician ELIESER Supervising Physician: Dr. Chan [facility] Narrative MDM hospital course: Symptoms, exam and diagnostic studies are consistent with: Exudative tonsillitis Patient was discharged home in stable condition. Patient/family advised to follow-up with their PCP in 24-48 hours. Encouraged to return to the ED for any new or worsening symptoms. Clinical Information Provided by patient Medical Records Reviewed None Meds/Rx Considered, not Ordered None Labs/Rad/Tests considered, not Ordered None Chronic Illness/Social Conditions which may negatively complicate care or outcome(s)-explain: Genetic/metabolic disorder (Diabetes) EKG EKG not done Lab Interpretation Labs: interpreted by ok Lab(s) interpretation(s): As noted above Imaging Imaging interpretation: none Provider imaging interpretation(s): N/A Radiology reports / interpretation(s): N/A Medication Administration(s) Tylenol 1 g p.o., Decadron 10 mg p.o., and Augmentin 875 mg p.o. Diagnosis Differential diagnosis: COVID, influenza, strep pharyngitis Differential dx and/or dx ruled out: COVID and influenza Most likely dx, and/or detailed dx discussion: Exudative tonsillitis Dispositon Disposition: Discharge Home
[2025-03-14] MEDS: ACETAMINOPHEN 500 MG TABLET 1000 MG PO (06:07)
[2025-03-14] MEDS: DEXAMETHASONE SOD PHOS INJ 10 MG/ML VIAL PO (06:07)
[2025-03-14] MEDS: AMOXICILLIN/POT CLAV 875 TABLET 1 TAB PO (06:07)
== END 2025-03-14 06:11 | disposition home or self-care (01) ==
PROVIDERS: Emergency Provider Emergency Medicine; PCP Family Medicine
DX: J03.90 Acute tonsillitis, unspecified (principal)
CPT/HCPCS: 87400; 87651; 87811; 99283; J1100; A9270